=== PATIENT | female | born 1970 | race Hispanic/Latino ===

== ENCOUNTER 2022-04-19 16:11 | Emergency (ER) | payer BC ==
[~2022-04-19] VITALS: Ht 152.4 cm; Wt 61.0 kg
[2022-04-19] MEDS ORDERED: AMOX/K CLAV875 M1 PO (17:43)
[2022-04-19] MEDS ORDERED: ZPAK PO (17:43)
[2022-04-19 19:04] VITALS: BP 133/77
== END 2022-04-19 20:10 | disposition home or self-care (01) | DRG 605 ==
LOC: ED 16:11
PROC: 3E0234Z Introduction of Serum, Toxoid and Vaccine into Muscle, Percutaneous Approach (ICD-10-PCS; principal; 2022-04-19)
DX: S80.812A Abrasion, left lower leg, initial encounter (principal); W55.03XA Scratched by cat, initial encounter; Z23 Encounter for immunization; Z29.14 Encounter for prophylactic rabies immune globulin